=== PATIENT | male | born 1990 | race Caucasian/White ===

== ENCOUNTER 2017-10-27 16:50 | Emergency (ER) | payer BC ==
[2017-10-27] MEDS ORDERED: Ketorolac 30 MG/ML SDV IVPUSH ONE (17:28)
[2017-10-27] MEDS ORDERED: Sodium Chloride 0.9% 1,000 ML IV ONE (17:28)
--- NOTE | 2017-10-27 17:44 | EDM.PDOC ---
ED HPI GENERAL MEDICAL PROBLEM - General Chief Complaint: Back Pain or Injury Stated Complaint: BACK PAIN/KIDNEY ISSUE Time Seen by Provider: 10/27/17 17:27 Source of Information: Reports: Patient History Limitations: Reports: No Limitations - History of Present Illness INITIAL COMMENTS - FREE TEXT/NARRATIVE: HISTORY AND PHYSICAL: History of present illness: Patient is a 27-year-old male who presents to the emergency room with complaints of back pain which radiates to the front. He states that he has had a decreased appetite 4 days. Reports that he has not had a normal bowel movement in several days, has had "small aditya" which are soft. Concerned as he believes his abdomen is distended and tender in all 4 quadrants. He reports he was seen in early September for low back pain, since that time he has had back pain that has gone up into his "kidneys". He is concerned that he has a urinary or kidney infection. Review of systems: As per history of present illness and below otherwise all systems reviewed and negative. Past medical history: As per history of present illness and as reviewed below otherwise noncontributory. Surgical history: As per history of present illness and as reviewed below otherwise noncontributory. Social history: No reported history of drug or alcohol abuse. Family history: As per history of present illness and as reviewed below otherwise noncontributory. Physical exam: General: Well developed and well nourished 27-year-old male. Alert and oriented. Nontoxic appearing and in no acute distress. HEENT: Atraumatic, normocephalic, pupils reactive, negative for conjunctival pallor or scleral icterus, mucous membranes moist, throat clear, neck supple, nontender, trachea midline. Lungs: Clear to auscultation, breath sounds equal bilaterally, chest nontender. Heart: S1S2, regular 8 and rhythm Abdomen: Soft, mildly distended, generalized tenderness with palpation in all 4 quadrants-no rebound tenderness. Negative for masses or hepatosplenomegaly. Negative for costovertebral tenderness. Pelvis: Stable nontender. Genitourinary: Deferred. Rectal: Deferred. Extremities: Atraumatic, moves all extremities per self without difficulty or deficits, negative for cords or calf pain. Neurovascular unremarkable. Neuro: Awake, alert, oriented. Cranial nerves II through XII unremarkable. Cerebellum unremarkable. Motor and sensory unremarkable throughout. Exam nonfocal. CBC, CMP and urinalysis are within normal limits. CT of the abdomen and pelvis is within normal limits. Shared this information with the patient. Pain may still be muscular in nature. Patient has Flexeril already prescribed, encouraged him to continue using this if it did help with the pain. Encouraged him to follow up with his primary care provider in the next couple days if he continues to have pain. The need referral for physical therapy if he continues to have back pain. Diagnostics: CBC, CMP, UA, CT abdomen and pelvis Therapeutics: IV fluid, Toradol, Zofran Impression: #1 Abdominal pain #2 Back pain Plan: 1. Lab work and CT were normal. Please continue to use Tylenol and/or ibuprofen as needed for pain management. You have Flexeril already prescribed, you may continue to take that as desired. 2. Gentle heat to the back may be beneficial. Gentle stretching. Please do not over do any activities or perform any heavy lifting for the next couple days. 3. Follow up with her primary care provider in the next couple days. Return to the ED as needed and as discussed. Definitive disposition and diagnosis as appropriate pending reevaluation and review of above. Duration: Day(s): Location: Reports: Abdomen, Back Bilateral Flank Pain Score (Numeric/FACES): 9 - Related Data Allergies Allergy/AdvReac Type Severity Reaction Status Date / Time No Known Allergies Allergy Verified 10/27/17 17:24 Home Meds: Home Meds . [No Known Home Meds] 10/27/17 [History] Past Medical History Genitourinary History: Reports: Other (See Below) Other Genitourinary History: kidney problem before - Infectious Disease History Infectious Disease History: Reports: Chicken Pox, Shingles Social & Family History - Tobacco Use Smoking Status *Q: Current Every Day Smoker Years of Tobacco use: 10 Packs/Tins Daily: 1 - Recreational Drug Use Recreational Drug Use: No ED ROS GENERAL - Review of Systems Review Of Systems: ROS reveals no pertinent complaints other than HPI. ED EXAM,LOWER BACK PAIN/INJURY - Physical Exam Exam: See Below (See dictation) Course - Vital Signs Last Recorded V/S: Last Vital Signs Temp 98.1 F 10/27/17 17:30 Pulse 80 10/27/17 17:30 Resp 18 10/27/17 17:30 BP 172/96 H 10/27/17 17:30 Pulse Ox 99 10/27/17 17:30 - Orders/Labs/Meds Orders: Active Orders 24 hr Category Date Time Status Abdomen Pelvis w Cont [CT] Stat Exams 10/27/17 17:44 Taken Abdomen Pelvis wo Cont [CT] Stat Exams 10/27/17 17:28 Stop Req Labs: Laboratory Tests 10/27/17 10/27/17 10/27/17 Range/Units 17:50 17:50 17:51 WBC 8.26 (4.0-11.0) K/uL RBC 4.87 (4.50-5.90) M/uL Hgb 14.4 (13.0-17.0) g/dL Hct 41.7 (38.0-50.0) % MCV 85.6 (80.0-98.0) fL MCH 29.6 (27.0-32.0) pg MCHC 34.5 (31.0-37.0) g/dL RDW Std Deviation 40.7 (28.0-62.0) fl RDW Coeff of Graciela 13 (11.0-15.0) % Plt Count 215 (150-400) K/uL MPV 10.70 (7.40-12.00) fL Neut % (Auto) 68.5 (48.0-80.0) % Lymph % (Auto) 22.8 (16.0-40.0) % Morton % (Auto) 7.7 (0.0-15.0) % Eos % (Auto) 0.8 (0.0-7.0) % Baso % (Auto) 0.2 (0.0-1.5) % Neut # (Auto) 5.7 (1.4-5.7) K/uL Lymph # (Auto) 1.9 (0.6-2.4) K/uL Morton # (Auto) 0.6 (0.0-0.8) K/uL Eos # (Auto) 0.1 (0.0-0.7) K/uL Baso # (Auto) 0.0 (0.0-0.1) K/uL Nucleated RBC % 0.0 /100WBC Nucleated RBCs # 0 K/uL Sodium 143 (136-146) mmol/L Potassium 3.5 (3.5-5.1) mmol/L Chloride 107 (98-110) mmol/L Carbon Dioxide 24 (21-31) mmol/L BUN 12 (6.0-23.0) mg/dL Creatinine 1.3 (0.6-1.5) mg/dL Est Cr Clr Drug Dosing 89.30 mL/min Estimated GFR (MDRD) > 60.0 ml/min Glucose 87 (60-110) mg/dL Calcium 9.4 (8.8-10.8) mg/dL Total Bilirubin 0.6 (0.1-1.5) mg/dL AST 21 (5-40) IU/L ALT 19 (8-54) IU/L Alkaline Phosphatase 76 (40-150) Total Protein 7.6 (6.0-8.0) g/dL Albumin 4.5 (3.5-5.0) g/dL Globulin 3.1 (2.0-3.5) g/dL Albumin/Globulin Ratio 1.5 (1.3-2.8) Urine Color YELLOW Urine Appearance CLEAR Urine pH 6.0 (5.0-8.0) Ur Specific [place] <= 1.005 (1.001-1.035) Urine Protein NEGATIVE (NEGATIVE) mg/dL Urine Glucose (UA) NEGATIVE (NEGATIVE) mg/dL Urine Ketones NEGATIVE (NEGATIVE) mg/dL Urine Occult Blood NEGATIVE (NEGATIVE) Urine Nitrite NEGATIVE (NEGATIVE) Urine Bilirubin NEGATIVE (NEGATIVE) Urine Urobilinogen 0.2 (<2.0) EU/dL Ur Leukocyte Esterase NEGATIVE (NEGATIVE) Urine RBC NONE SEEN (0-2/HPF) Urine WBC 0-1 (0-5/HPF) Ur Epithelial Cells NOT SEEN (NONE-FEW) Urine Bacteria RARE (NEGATIVE) Meds: Medications Discontinued Medications Generic Name Dose Route Start Last Admin Trade Name Freq PRN Reason Stop Dose Admin Sodium Chloride 1,000 mls @ 999 mls/hr 10/27/17 17:28 10/27/17 17:41 Normal Saline IV 10/27/17 18:28 999 mls/hr STAT ONE Administration Iopamidol 100 ml 10/27/17 17:46 Isovue Multipack-370 (76%) IVPUSH 10/27/17 17:47 ONETIME STA Ketorolac Tromethamine 30 mg 10/27/17 17:28 10/27/17 17:41 Toradol IVPUSH 10/27/17 17:29 30 mg ONETIME ONE Administration Departure - Departure Time of Disposition: 19:41 Disposition: Home, Self-Care 01 Clinical Impression: Abdominal pain Qualifiers: Abdominal location: generalized Qualified Code(s): R10.84 - Generalized abdominal pain Back pain Qualifiers: Back pain location: low back pain Chronicity: unspecified Back pain laterality : bilateral Sciatica presence: without sciatica Qualified Code(s): M54.5 - Low back pain - Discharge Information Referrals: PCP,None [Primary Care Provider] - Forms: ED Department Discharge Additional Instructions: My general discharge The following information is given to patients seen in the emergency department who are being discharged to home. This information is to outline your options for follow-up care. We provide all patients seen in our emergency department with a follow-up referral. The need for follow-up, as well as the timing and circumstances, are variable depending upon the specifics of your emergency department visit. If you don't have a primary care physician on staff, we will provide you with a referral. We always advise you to contact your personal physician following an emergency department visit to inform them of the circumstance of the visit and for follow-up with them and/or the need for any referrals to a consulting specialist. The emergency department will also refer you to a specialist when appropriate. This referral assures that you have the opportunity for follow-up care with a specialist. All of these measure are taken in an effort to provide you with optimal care, which includes your follow-up. Under all circumstances we always encourage you to contact your private physician who remains a resource for coordinating your care. When calling for follow-up care, please make the office aware that this follow-up is from your recent emergency room visit. If for any reason you are refused follow-up, please contact the [facility] at and asked to speak to the emergency department charge nurse. [facility] [address] [place] [id number] 1. Lab work and CT were normal. Please continue to use Tylenol and/or ibuprofen as needed for pain management. You have Flexeril already prescribed, you may continue to take that as desired. 2. Gentle heat to the back may be beneficial. Gentle stretching. Please do not over do any activities or perform any heavy lifting for the next couple days. 3. Follow up with her primary care provider in the next couple days. Return to the ED as needed and as discussed. - My Orders Last 24 Hours: My Active Orders 10/27/17 17:28 Abdomen Pelvis wo Cont [CT] Stat 10/27/17 17:44 Abdomen Pelvis w Cont [CT] Stat - Assessment/Plan Last 24 Hours: My Active Orders 10/27/17 17:28 Abdomen Pelvis wo Cont [CT] Stat 10/27/17 17:44 Abdomen Pelvis w Cont [CT] Stat
[2017-10-27] MEDS ORDERED: Iopamidol 755 MG/ML 200 ML Multipack Bottle IVPUSH STA (17:46)
[2017-10-27 18:25] LABS: CHLORIDE,CL 107 mmol/L (98-110); SODIUM,NA 143 mmol/L (136-146)
--- NOTE | 2017-10-29 15:00 | CT ---
EXAM DATE: 10/27/17 PATIENT'S AGE: 27 Patient: EMANUEL BRASWELL Facility: [place], [place] Site . Site : 1990 Study: CT Abdomen/Pelvis [id number]/[id number] 7:10:16 PM Ordering Physician: Doctor Dominguez Final Report: INDICATION: General abd pain HISTORY: Generalized abdominal pain. COMPARISON: None. TECHNIQUE: CT of the abdomen and pelvis. 98 cc of intravenous contrast media. Coronal/ sagittal reconstruction images. FINDINGS: Lung bases: There is no pleural or pericardial effusion. The heart size is normal. The lung bases demonstrate no acute airspace disease. There is no basilar pneumothorax. Abdomen/pelvis: No solid hepatic mass. No dilation of intrahepatic biliary radicals. No perihepatic ascites. The spleen size is normal. There is no adrenal mass. There is no hydronephrosis. There is no perinephric edema. There is no pancreatic mass or pancreatic duct dilation. No glandular atrophy. There is no free air. Prostate and urinary bladder are normal. There is no wall thickening of the small bowel or colon. There is no perienteric edema. There is no transition point. Normal caliber appendix. This is seen best on series 201, image 104. There is no abdominal aortic aneurysm. The celiac axis, SMA, and NADIA are patent. There is no adenopathy by size criteria in the pelvis, retroperitoneum, gastrohepatic ligament, small bowel mesentery. The bone windows demonstrate no lytic or blastic bone lesions. The alignment is preserved. On sagittal reconstruction images, vertebral body heights and alignment are preserved. IMPRESSION: 1. There are no acute findings seen to explain the patient`s abdominal pain. 2. Normal caliber appendix. 3. No abdominal/pelvic lymphadenopathy. Dictated by Sergio Causey MD @ 10/27/2017 7:28:29 PM Dictated by: Sergio Causey MD @ 10/27/2017 19:28:39 (Electronic Signature) Report Signed by Proxy. BRENDA
== END 2017-10-27 19:52 | disposition home or self-care (01) ==
LOC: MW.ED 16:50
DX: R10.9 Unspecified abdominal pain (principal); M54.5 Low back pain; F17.210 Nicotine dependence, cigarettes, uncomplicated
CPT/HCPCS: 36415; 74177; 80053; 81001; 85025; 96361; 96374; 99284; J1885; J7040